=== PATIENT | female | born 1985 | race Caucasian/White ===

== ENCOUNTER → 2023-01-04 14:10 | Outpatient (CLI) | payer OTHER, SELFPAY | PROVIDERS: Visit Provider Nurse Practitioner Family | DX: J02.9 Acute pharyngitis, unspecified (principal) | CPT/HCPCS: 87070 ==

== ENCOUNTER → 2023-04-08 14:41 | Outpatient (CLI) | payer OTHER, SELFPAY ==
[2023-04-15 23:08] LABS: Anti Mullerian Hormone 8.21 ng/mL (.)
== END ==
LOC: LAB 14:41
PROVIDERS: Referring Provider Obstetrics & Gynecology; Visit Provider Obstetrics & Gynecology
DX: Z31.41 Encounter for fertility testing (principal)
CPT/HCPCS: 36415; 82397

== ENCOUNTER → 2023-06-04 12:17 | Outpatient (CLI) | payer OTHER, SELFPAY ==
[2023-06-04 12:47] LABS: Add Manual Diff / Slide Review NO; Basophils Absolute Auto 100 /uL (0-100); Basophils Percent Auto 0.7 % (0-2); Eosinophils Absolute Auto 200 /uL (0-450); Eosinophils Percent Auto 2.7 % (2-4); Hematocrit 36.8 % (36-46); Hemoglobin 12.4 g/dL (12.0-16.0); Lymphocytes Absolute Auto 2000 /uL (1100-4500); Lymphocytes Percent Auto 27.7 % (25-40); Mean Corpuscular HGB Conc 33.6 % (30-36); Mean Corpuscular Hemoglobin 28.7 PG (26-34); Mean Corpuscular Volume 85.4 fL (80-100); Monocytes Absolute Auto 600 /uL (0-900); Monocytes Percent Auto 8.3 % (3-14); Neutrophils Absolute Auto 4400 /uL (1500-7000); Neutrophils Percent Auto 60.6 % (50-75); Platelet Count 284 X10^3/uL (150-400); Red Cell Distribution Width 13.7 % (11.6-14.8); White Blood Cell Count 7.3 X10^3/uL (4.5-11.0)
[2023-06-04 15:35] LABS: Alanine Aminotransferase 15 IU/L (<35); Albumin 3.9 g/dL (3.5-5.0); Albumin Globulin Ratio 1.5 (1.0-2.8); Alkaline Phosphatase 52 U/L (38-126); Aspartate Aminotransferase 21 IU/L (14-36); BUN Creatinine Ratio 22.1 (6-22); Bilirubin Total 0.6 mg/dL (0.2-1.3); Blood Urea Nitrogen 15 mg/dL (7-17); Calcium 9.8 mg/dL (8.4-10.2); Carbon Dioxide 28 mmol/L (22-32); Chloride 106 mmol/L (98-107); Cholesterol 164 mg/dL (140-199); Estimated Glomerular Filt Rate > 60 mL/min (>60); Globulin 2.6 g/dL (1.7-4.1); Glucose 79 mg/dL (70-100); HDL Cholesterol 72 mg/dL (40-60); HEMOLYSIS < 15 (0-50); LDL Cholesterol Calculated 72 mg/dL (<100); Sodium 138 mmol/L (137-145); Total Protein 6.5 g/dL (6.3-8.2); Triglycerides 101 mg/dL (35-150)
[2023-06-04 18:12] LABS: TSH w/ Reflex to FT4 2.17 uIU/mL (0.47-4.68)
== END ==
LOC: LAB 12:19
PROVIDERS: PCP Family Medicine; Referring Provider Family Medicine; Visit Provider Family Medicine
DX: Z00.00 Encounter for general adult medical examination without abnormal findings (principal); Z83.438 Family history of other disorder of lipoprotein metabolism and other lipidemia
CPT/HCPCS: 36415; 80053; 80061; 84443; 85025

== ENCOUNTER → 2023-11-21 13:43 | Outpatient (CLI) | payer OTHER, SELFPAY ==
--- NOTE | 2023-11-21 13:43 | DI.ECHO.S_ITS ---
[facility] : : [address] : : [place] : : [id number] : : Phone: [phone] Echocardiogram Report + + :Name: JODY COMBS Study Date: 11/21/2023 Height: 70 in : :[facility] ReadingLocation: Weight: 140 lb : : Gender: Female BSA: 1.8 m2 : :: 1985 Age: 38 yrs BP: 116/85 mmHg: :Reason For Study: Palpitations, near syncope : :Ordering Physician: LAKIA, : :SARAHI Performed By: Fadia Acosta : :Referring: SARAHI DORMAN : + + Interpretation Summary The ejection fraction is estimated to be 55-60%. Diastolic parameters suggest probable normal left ventricular diastolic function and normal filling pressures. The right ventricle is normal in size and function. No significant valvular abnormalities. Pulmonary artery pressures cannot be estimated because of the lack of a measurable TR jet velocity but the IVC suggests a CVP of around 3 mmHg. Procedure: A two-dimensional transthoracic echocardiogram with color flow and Doppler was performed. The study quality was technically good. There is no prior echocardiogram noted for this patient. The patient was in sinus rhythm with heart rates between 55-68 bpm during the exam. Left Ventricle: The left ventricle is normal in size and wall thickness. The ejection fraction is estimated to be 55-60%. Diastolic parameters suggest probable normal left ventricular diastolic function and normal filling pressures. Right Ventricle: The right ventricle is normal in size and function. Atria: The left atrial size is normal. The right atrium is normal in size. There is no Doppler evidence for an interatrial shunt. Mitral Valve: The mitral valve is normal. There is trace mitral regurgitation. Aortic Valve: The aortic valve is trileaflet. The aortic valve opens well. There is no aortic valve stenosis. No aortic regurgitation is present. Tricuspid Valve: The tricuspid valve leaflets are thin and pliable. There is a trace or physiologic amount of tricuspid regurgitation. Pulmonary artery pressures cannot be estimated because of the lack of a measurable TR jet velocity but the IVC suggests a CVP of around 3 mmHg. Pulmonic Valve: The pulmonic valve leaflets are thin and pliable; valve motion is normal. There is a trace or physiologic amount of pulmonic regurgitation. Great Vessels: The aortic root is normal size. The ascending aorta is normal in size. The aortic arch is normal in size. The pulmonary artery is normal size. The IVC is of normal diameter and collapses greater than 50% with a sniff. This suggests a low right atrial pressure of 3 mm Hg. Pericardium/ Pleura There is no pericardial effusion. There is no pleural effusion. MMode/2D Measurements & Calculations LVIDd: 4.7 cm LVOT diam: 2.5 cm LVIDs: 3.1 cm Ao root diam: 3.1 cm FS: 33.9 % asc Aorta Diam: 3.2 cm IVSd: 0.57 cm Ao Arch Diam (Prox Trans): 1.4 cm LVPWd: 0.88 cm LV santoyo. diameter/BSA (cm/m^2): 2.6 LV sys. diameter/BSA (cm/m^2): 1.7 LA A2 area: 22.8 cm2 RA long axis: 4.6 cm LA A4 area: 15.8 cm2 RA area: 15.1 cm2 LA length (vol): 4.7 cm RA vol: 42.6 ml LA vol: 64.5 ml RA : 23.7 ml/m2 LA vol index: 36.0 ml/m2 IVC diam: 1.6 cm TAPSE: 2.4 cm LVAd ap4: 32.8 cm2 LVAs ap4: 18.4 cm2 LVLs ap4: 7.3 cm LVAd ap2: 29.6 cm2 LVLd ap2: 8.5 cm LVAs ap2: 17.4 cm2 LVLs ap2: 7.0 cm Doppler Measurements & Calculations Ao V2 max: 106.8 cm/sec LVOT Max Femi: 91.8 cm/sec Ao V2 mean: 74.0 cm/sec LV V1 max P.4 mmHg Ao max P.6 mmHg LV V1 VTI: 20.1 cm Ao mean P.5 mmHg SYDNIE(I,D): 4.0 cm2 Ao V2 VTI: 23.9 cm SYDNIE(V,D): 4.1 cm2 sev ratio: 0.84 SYDNIE indexed to BSA (cm^2/m^2): 2.2 MV E max femi: 73.3 cm/sec PA V2 max: 70.5 cm/sec MV A max femi: 29.2 cm/sec PA V2 mean: 45.0 cm/sec MV E/A: 2.5 PA mean P.91 mmHg Med Peak E' Femi: 13.1 cm/sec PA pr(Accel): -6.6 mmHg E/E' med: 5.6 Lat Peak E' Femi: 16.5 cm/sec E/E' lat: 4.4 E/e' average: 5.0 MV dec time: 0.20 sec SV(LVOT): 96.0 ml Reading Physician:04:53 PM
== END ==
PROVIDERS: PCP Family Medicine; Referring Provider Family Medicine; Visit Provider Family Medicine
DX: R55 Syncope and collapse (principal); R00.2 Palpitations
CPT/HCPCS: 93306

== ENCOUNTER 2023-12-23 17:40 | Emergency (ER) | payer OTHER, SELFPAY ==
[2023-12-23 17:56] VITALS: BP 159/83; PULSE 77; RESP 16; TEMP 37.2; O2SAT 100; BMI 20.7
--- NOTE | 2023-12-23 18:20 | DI.US.S_ITS ---
PROCEDURE: US PELVIC COMPLETE INDICATIONS: pelvic pain with L adnexa pain TECHNIQUE: Real-time scanning was performed of the pelvic organs, with image documentation. Additional endovaginal scanning was necessary due to incomplete visualization of the adnexal and endometrial structures by transabdominal scanning. COMPARISON: [facility], US, US PELVIC COMPLETE, 05/01/2023, 12:31. FINDINGS: Uterus: Uterus is anteverted and normal in size at 9.7 x 4.1 cm. The myometrium is heterogeneous. The endometrium measures 6 mm combined thickness. Multiple intramural and subserosal uterine fibroids are noted. There is a right, anterior intramural fibroid measuring 1.1 x 0.9 x 1.2 cm. There is a left anterior intramural uterine fibroid measuring 0.9 x 0.8 x 1.1 cm. There is a anterior midline subserosal uterine fibroid measuring 1.3 x 0.9 x 1.3 cm. Ovaries: The right ovary measures 1.8 x 4.2 x 2.1 cm, with a calculated ovarian volume of 8.6 cc. The left ovary measures 2.6 x 4.1 x 2.4 cm, with a calculated ovarian volume of 13.6 cc. The ovaries have a normal sonographic appearance. Less than 12 follicles can be seen in each ovary. No adnexal masses are seen. Normal vascular waveforms bilaterally. No evidence for abnormal vessel dilatation of the pelvic vessels. Other: No pathologic free abdominal or pelvic fluid. IMPRESSION: Pelvic ultrasound without acute sonographic abnormalities. No evidence for ovarian torsion. Multi fibroid uterus as described above. No sonographic findings to suggest pelvic congestion syndrome. We strive to produce accurate, complete, and clear reports of imaging services. To assist us in improving patient care, this report was composed using standard report templates and voice recognition software. Therefore, it may contain abnormal punctuation, insertions and/or omissions. Occasional wrong-word or sound-alike substitutions may occur. Though we review the report and make efforts to correct it, we do recommend that the report be read carefully in proper context to recognize any text inaccuracies. Dictated by: Bobby Escobar M.D. on 12/23/2023 at 20:14 Approved by: Bobby Escobar M.D. on 12/23/2023 at 20:16
[2023-12-23 19:12] VITALS: BP 135/88; PULSE 78; RESP 18; O2SAT 99
--- NOTE | 2023-12-23 19:28 | PC.NURSE ---
US at bedside
[2023-12-23 19:30] VITALS: BP 137/69; PULSE 78; RESP 18; O2SAT 98
[2023-12-23 19:37] LABS: Add Manual Diff / Slide Review NO; Basophils Absolute Auto 100 /uL (0-100); Basophils Percent Auto 0.8 % (0-2); Eosinophils Absolute Auto 200 /uL (0-450); Eosinophils Percent Auto 3.3 % (2-4); Hematocrit 37.4 % (36-46); Hemoglobin 12.7 g/dL (12.0-16.0); Lymphocytes Absolute Auto 2100 /uL (1100-4500); Lymphocytes Percent Auto 31.9 % (25-40); Mean Corpuscular HGB Conc 34.1 % (30-36); Mean Corpuscular Hemoglobin 28.3 PG (26-34); Mean Corpuscular Volume 83.1 fL (80-100); Monocytes Absolute Auto 500 /uL (0-900); Monocytes Percent Auto 7.9 % (3-14); Neutrophils Absolute Auto 3700 /uL (1500-7000); Neutrophils Percent Auto 56.1 % (50-75); Platelet Count 256 X10^3/uL (150-400); Red Cell Distribution Width 13.4 % (11.6-14.8); White Blood Cell Count 6.6 X10^3/uL (4.5-11.0)
--- NOTE | 2023-12-23 19:39 | PC.NURSE ---
Pt requesting to have straight stick for blood draw instead of placing an IV at this time. Explained to patient the possible need for more blood, IV meds or fluids. Pt states understanding and is willing to have IV placed at later time if necessary. 21g butterfly needle used for straight stick, left AC without difficulty at this time for lab draw.
[2023-12-23 19:49] LABS: Alanine Aminotransferase 14 IU/L (<35); Albumin 4.1 g/dL (3.5-5.0); Albumin Globulin Ratio 1.4 (1.0-2.8); Alkaline Phosphatase 54 U/L (38-126); Aspartate Aminotransferase 24 IU/L (14-36); BUN Creatinine Ratio 12.9 (6-22); Bilirubin Total 0.4 mg/dL (0.2-1.3); Blood Urea Nitrogen 9 mg/dL (7-17); Calcium 9.5 mg/dL (8.4-10.2); Carbon Dioxide 28 mmol/L (22-32); Chloride 103 mmol/L (98-107); Estimated Glomerular Filt Rate > 60 mL/min (>60); Globulin 2.9 g/dL (1.7-4.1); Glucose 91 mg/dL (70-100); HEMOLYSIS < 15 (0-50); Lipase 39 U/L (23-300); Potassium 3.5 mmol/L (3.4-5.1); Sodium 136 mmol/L (137-145)
[2023-12-23 20:00] VITALS: BP 112/72; PULSE 71; O2SAT 100
[2023-12-23 20:30] VITALS: PULSE 80; O2SAT 100
[2023-12-23 20:31] VITALS: BP 135/82; PULSE 82; O2SAT 100
--- NOTE | 2023-12-23 20:42 | ED_ITS ---
HPI - General Adult General Chief complaint: Urogenital-Female Stated complaint: [facility]u inflamatory disease Time Seen by Provider: 12/23/23 18:18 Source: patient Mode of arrival: Ambulatory History of Present Illness HPI narrative: Patient is an otherwise healthy 38-year-old female. Not on control. No history of sexually transmitted diseases. Not concerned about sexually transmitted diseases. He is monogamous with her . Has been 1 time in the past. Had an elective but that was many years ago. States that she is very regular on her menstrual cycles. Had her normal menstrual cycle about 1 week ago. She stated that her menstrual cycle symptoms actually resolved now she was had some pelvic cramping. Has a history of ?pelvic congestion?. She denies vaginal bleeding, urinary symptoms, change in bowel habits, has had subjective fevers at home. No chest pain, shortness of breath, abdominal pain, nausea vomiting. No prior abdominal surgeries. Related Data Home Medications Medication Instructions Recorded Confirmed tretinoin 0.025 % topical cream 1 applic topical ONCE PM 06/04/23 10/29/23 Previous Rx's Medication Instructions Recorded levonorgestrel 0.15 mg-ethinyl 1 tab PO DAILY #91 ea 05/01/23 estradiol 30 mcg tablets,3 mos pack(91) Allergies Allergy/AdvReac Type Severity Reaction Status Date / Time No Known Drug Allergies Allergy Verified 10/29/23 16:02 Review of Systems Review of Systems ROS Unobtainable: All systems reviewed & are unremarkable except as noted in HPI and below Patient History Medical History Panic attacks Palpitations Wears glasses Depression Anxiety ADHD (~1994) Chicken pox Deviated septum Tinnitus Fibroids (~2015) Pelvic congestion (~2015) Family history of coronary artery disease Family history of hypothyroidism GERD (gastroesophageal reflux disease) PVCs (premature ventricular contractions) Raynauds phenomenon History of melanoma Melanoma (~2006) Surgical History (Updated 07/23/23 @ 18:40 by Mona Monae) Anesthesia History of endoscopy (~2019) History of nasal septoplasty History of rhinoplasty History of melanoma excision (~01/2007) Status post laparoscopy (01/14/17) Status post biopsy History of third molar tooth extraction Family History (Updated 07/23/23 @ 18:43 by Mona Monae) Father History of heart disease Hypertension Hyperlipidemia Mental health problem Mother Fibromyalgia Hypothyroidism Brother Mental health problem Brother Hyperlipidemia Hypertension Mental health problem Obesity Sister Mental health problem Uterine cancer Morbid obesity Grandfather History of heart disease Social History Smoking Status: Never smoker Smoking Status: Never smoker alcohol intake frequency: holidays/special occasions only Substance Use Type: does not use Exam Initial Vital Signs Initial Vital Signs: Vital Signs Temperature 98.9 F 12/23/23 17:56 Pulse Rate 77 12/23/23 17:56 Respiratory Rate 16 12/23/23 17:56 Blood Pressure 159/83 H 12/23/23 17:56 Pulse Oximetry 100 12/23/23 17:56 Oxygen Delivery Method Room Air 12/23/23 17:56 Const General: cooperative, comfortable and No ill appearing HENMT Head: normal to inspection and normocephalic Resp Effort & Inspection: normal respiratory effort Auscultation: clear to auscultation bilaterally Cardio Rate: regular rate Rhythm: regular rhythm GI Inspection: normal to inspection and non-distended Palpation: soft, No firm, No guarding and tender Skin General: no rashes or lesions noted Neuro General: patient alert, patient awake, patient oriented x3 and moves all extremities Extrem General: capillary refill normal Course Orders Ordered: ED Orders 12/23/23 18:20 US pelvic complete Stat 12/23/23 19:20 Complete Blood Count AUTO DIFF Stat 12/23/23 19:28 Comprehensive Metabolic Panel Stat Lipase Stat Vital Signs Vital signs: Vital Signs - 8 hr 12/23/23 17:56 12/23/23 19:12 12/23/23 19:12 Temperature 98.9 F Pulse Rate 77 78 Respiratory Rate 16 18 Blood Pressure 159/83 H 135/88 Pulse Oximetry 100 99 Oxygen Delivery Method Room Air 12/23/23 19:30 12/23/23 19:30 12/23/23 20:00 Temperature Pulse Rate 78 Respiratory Rate 18 Blood Pressure 137/69 112/72 Pulse Oximetry 98 Oxygen Delivery Method Room Air 12/23/23 20:00 12/23/23 20:30 12/23/23 20:31 Temperature Pulse Rate 71 80 Respiratory Rate Blood Pressure 135/82 Pulse Oximetry 100 100 Oxygen Delivery Method 10/28/24 20:31 Temperature Pulse Rate 82 Respiratory Rate Blood Pressure Pulse Oximetry 100 Oxygen Delivery Method Room Air Medical Decision Making Lab Data Lab results reviewed: Yes I reviewed the patient's lab results. 12/23/23 19:20 12/23/23 19:28 Labs: Lab Results 12/23/23 12/23/23 Range/Units 19:20 19:28 WBC 6.6 (4.5-11.0) X10^3/uL RBC 4.50 (4.0-5.2) X10^6/uL Hgb 12.7 (12.0-16.0) g/dL Hct 37.4 (36-46) % MCV 83.1 (80-100) fL MCH 28.3 (26-34) PG MCHC 34.1 (30-36) % RDW 13.4 (11.6-14.8) % Plt Count 256 (150-400) X10^3/uL Neut % (Auto) 56.1 (50-75) % Lymph % (Auto) 31.9 (25-40) % Esmeralda % (Auto) 7.9 (3-14) % Eos % (Auto) 3.3 (2-4) % Baso % (Auto) 0.8 (0-2) % Neut # (Auto) 3700 (3222-7725) /uL Lymph # (Auto) 2100 (0052-8478) /uL Esmeralda # (Auto) 500 (0-900) /uL Eos # (Auto) 200 (0-450) /uL Baso # (Auto) 100 (0-100) /uL Sodium 136 L (137-145) mmol/L Potassium 3.5 (3.4-5.1) mmol/L Chloride 103 (98-107) mmol/L Carbon Dioxide 28 (22-32) mmol/L BUN 9 (7-17) mg/dL Creatinine 0.70 (0.52-1.04) mg/dL Estimated GFR > 60 (>60) mL/min BUN/Creatinine Ratio 12.9 (6-22) Glucose 91 (70-100) mg/dL Calcium 9.5 (8.4-10.2) mg/dL Total Bilirubin 0.4 (0.2-1.3) mg/dL AST 24 (14-36) IU/L ALT 14 (<35) IU/L Alkaline Phosphatase 54 (38-126) U/L Total Protein 7.0 (6.3-8.2) g/dL Albumin 4.1 (3.5-5.0) g/dL Globulin 2.9 (1.7-4.1) g/dL Albumin/Globulin Ratio 1.4 (1.0-2.8) Lipase 39 (23-300) U/L Point of Care Testing Test Results Negative Urine Dip Bedside Urine Glucose Negative Bedside Urine Bilirubin - Negative Bedside Urine Ketone - Negative Urine Specific Kemp 1.005 Bedside Urine Occult Blood - Negative Bedside Urine pH 6.0 Bedside Urine Protein - Negative Bedside Urine Urobilinogen - Negative Bedside Urine Nitrite - Negative Bedside Urine Leukocytes - Negative Esterase Point of care testing: Point of Care Testing Test Results Negative Urine Dip Bedside Urine Glucose Negative Bedside Urine Bilirubin - Negative Bedside Urine Ketone - Negative Urine Specific Kemp 1.005 Bedside Urine Occult Blood - Negative Bedside Urine pH 6.0 Bedside Urine Protein - Negative Bedside Urine Urobilinogen - Negative Bedside Urine Nitrite - Negative Bedside Urine Leukocytes - Negative Esterase Imaging Data US - LETTER OF CREDIT DOCUMENT EXAMINER: Radiologist's Impression: PROCEDURE: US PELVIC COMPLETE INDICATIONS: pelvic pain with L adnexa pain TECHNIQUE: Real-time scanning was performed of the pelvic organs, with image documentation. Additional endovaginal scanning was necessary due to incomplete visualization of the adnexal and endometrial structures by transabdominal scanning. COMPARISON: [facility], US, US PELVIC COMPLETE, 05/01/2023, 12:31. FINDINGS: Uterus: Uterus is anteverted and normal in size at 9.7 x 4.1 cm. The myometrium is heterogeneous. The endometrium measures 6 mm combined thickness. Multiple intramural and subserosal uterine fibroids are noted. There is a right, anterior intramural fibroid measuring 1.1 x 0.9 x 1.2 cm. There is a left anterior intramural uterine fibroid measuring 0.9 x 0.8 x 1.1 cm. There is a anterior midline subserosal uterine fibroid measuring 1.3 x 0.9 x 1.3 cm. Ovaries: The right ovary measures 1.8 x 4.2 x 2.1 cm, with a calculated ovarian volume of 8.6 cc. The left ovary measures 2.6 x 4.1 x 2.4 cm, with a calculated ovarian volume of 13.6 cc. The ovaries have a normal sonographic appearance. Less than 12 follicles can be seen in each ovary. No adnexal masses are seen. Normal vascular waveforms bilaterally. No evidence for abnormal vessel dilatation of the pelvic vessels. Other: No pathologic free abdominal or pelvic fluid. IMPRESSION: Pelvic ultrasound without acute sonographic abnormalities. No evidence for ovarian torsion. Multi fibroid uterus as described above. No sonographic findings to suggest pelvic congestion syndrome. MDM Narrative Medical decision making narrative: Workup here in the emergency department is unremarkable. Ultrasounds unremarkable. test is negative, she is not concerned about STDs. No other indication of an infectious source. No indication for antibiotics. Recommended that she take ibuprofen for the cramping. Recommended that she contact her adjunct professor of law provider for a follow-up. She was given return precautions. She expressed understanding and agreement. Discharge Plan Departure Patient Disposition: Home Clinical Impression: Pelvic pain Instructions: DI for Pelvic Pain Activity Restrictions/Additional Instructions: Continue to take all of your medications as directed. I do recommend that you contact your adjunct professor of law provider for a follow-up. Return to the emergency department for new or worsening symptoms. Prescriptions: No Action levonorgestrel-ethinyl estrad 0.15 mg-30 mcg (91) tablets,dose pack,3 month 1 tab PO DAILY Qty: 91 3RF tretinoin 0.025 % cream 1 applic topical ONCE PM Referrals: Colton Delgado DO [Primary Care Provider] - Stand Alone Forms: Patient Portal/API/Survey
== END 2023-12-23 20:51 | disposition home or self-care (01) ==
PROVIDERS: Emergency Provider Emergency Medicine; PCP Family Medicine
DX: R10.2 Pelvic and perineal pain (principal)
CPT/HCPCS: 76856; 80053; 81003; 81025; 83690; 85025; 99282; 99284

== ENCOUNTER → 2024-07-17 07:51 | Outpatient (CLI) | payer OTHER, SELFPAY ==
[2024-07-17 09:09] LABS: Influenza A - CEPHEID Flu A NEGATIVE (NEGATIVE); Influenza B - CEPHEID Flu B NEGATIVE (NEGATIVE); Respiratory Syncytial Virus Negative (Negative)
[2024-07-17 09:11] LABS: COVID-19 CEPHEID 4-PLEX PCR Negative (Negative)
== END ==
PROVIDERS: PCP Family Medicine; Visit Provider Chiropractor
DX: R05.1 Acute cough (principal); J02.9 Acute pharyngitis, unspecified
CPT/HCPCS: 0241U; 87070